=== PATIENT | female | born 1930 | race Caucasian/White ===

== ENCOUNTER → 2017-02-16 | Outpatient (CLI) | payer OTHER, MEDICARE ==
[~2017-02-16] MED LIST: AZITHROMYCIN PO; CALCIUM 600 +1 EAC2 PO; Z.0.CALTRATE 600 W1; Z.0.TESSALON PERLE10 PO
--- NOTE | 2017-02-16 11:28 | Diagnostic Imaging Report ---
PROCEDURE:PELVIC ULTRASOUND COMPARISON:Pelvic ultrasounds 05/11/16, 06/19/15, 12/27/2012 and 12/04/2011 INDICATIONS:Ovarian Enlargement, left ovarian cyst, history of hysterectomy in 1979 TECHNIQUE: Grayscale transverse and sagittal transabdominal images were obtained of the pelvis. FINDINGS: UTERUS: Absent RIGHT OVARY: Not visualized LEFT OVARY: No ovarian tissue is visualized. A unilocular cyst in the left pelvis measures 3.7 x 4.2 x 4.7 cm. The volume is 38.2 cc. Most recently (2016), this measured 3.6 x 3.4 x 5.0 cm (volume 32 cc). In 2015, this measured 3.1 x 3.0 x 4.4 cm (volume 21.4 cc). In 2011, this measured 2.7 x 2.6 x 3.6 cm (volume 13.2 cc). There is no increased vascularity on color Doppler interrogation. Bladder: A cystic structure along the posterior bladder wall to left of midline is stable measuring 9 x 11 x 14 mm. This has been present since 2014. There is no vascularity on Doppler interrogation. The remainder of the bladder wall is normal. There is no free fluid within the pelvis. CONCLUSION: 1. Unilocular cyst in the left pelvis continues to increase in size without development of suspicious features. 2. Stable bladder cyst. Dictated by: Suha Dale M.D. on 02/16/2017 at 11:36 Electronically approved by: Suha Dale M.D. on 02/16/2017 at 11:36
== END ==
LOC: US 09:41
PROVIDERS: ATTEND Internal Medicine
DX: D47.2 Monoclonal gammopathy (principal); N83.8 Other noninflammatory disorders of ovary, fallopian tube and broad ligament
CPT/HCPCS: 76856

== ENCOUNTER → 2017-06-13 | Outpatient (CLI) | payer MEDICARE ==
--- NOTE | 2017-06-16 08:58 | Diagnostic Imaging Report ---
#[id number] - MGSCRBIL #BILATERAL DIGITAL SCREENING MAMMOGRAM WITH CAD: 06/13/2017 CLINICAL: Routine screening. Comparison is made to exams dated: 05/25/2016 mammogram and 01/22/2013 mammogram - [facility]. Current study contains 4 films. The tissue of both breasts is extremely dense, which lowers the sensitivity of mammography. Current study was also evaluated with a Computer Aided Detection (CAD) system. There are benign calcifications in both breasts. No significant masses, calcifications, or other findings are seen in either breast. There has been no significant interval change. IMPRESSION: BENIGN There is no mammographic evidence of malignancy. A 1 year screening mammogram is recommended. The patient will be notified by letter of the results. Nuno martin/sophia:06/15/2017 12:47:51 Manager Nicu: Darlene SKAGGS(R)(M), [facility] letter sent: Compared to Prior B9 Mammogram BI-RADS: 2 Benign
== END ==
LOC: MAMMO 13:28
PROVIDERS: ATTEND Internal Medicine
DX: Z12.31 Encounter for screening mammogram for malignant neoplasm of breast (principal)
CPT/HCPCS: 77067

== ENCOUNTER 2018-04-23 23:32 | Observation (INO) | payer MEDICARE ==
[~2018-04-23] VITALS: Ht 162.6 cm; Wt 56.7 kg
--- OUTSIDE RECORDS SUMMARY | 2018-04-23 23:35 | XMS REPORT | Summary of Care ---
Author Author [facility] Organization [facility] Address Unknown Phone Unavailable Encounter HQ Encntr_winnie(FIN) [id number] Date(s): 02/16/17 - 02/16/17 [facility] [address] [place] [address]- Encounter Diagnosis Age-related osteoporosis without current pathological fracture (Final) - 02/21/17 Discharge Disposition: Home or Self Care Attending Physician: Rivera Andino MD Admitting Physician: Rivera Andino MD Referring Physician: Rivera Andino MD Vital Signs No data available for this section Problem List No data available for this section Allergies, Adverse Reactions, Alerts No data available for this section Medications No data available for this section Results No data available for this section Immunizations No data available for this section Procedures No data available for this section Social History No data available for this section Assessment and Plan No data available for this section
--- OUTSIDE RECORDS SUMMARY | 2018-04-23 23:35 | XMS REPORT | Continuity of Care Document ---
[facility] Address Unknown Phone Unavailable Problems Problem Status Onset Date Classification Date Reported Comments Source Age-related osteoporosis without current pathological fracture 02/22/2017 05/25/2017 [facility] M81.0 Active 01/23/2017 [facility] M54.5 Active 10/15/2015 [facility] AGE-RELATED OSTEOPOROSIS W/O CURRENT PAT Active [facility] LOW BACK PAIN Active [facility] Medications Medication Details Route Status Patient Instructions Ordering Provider Order Date Source Allergies, Adverse Reactions, Alerts Substance Category Reaction Severity Reaction type Status Date Reported Comments Source Immunizations Immunization Date Given Site Status Last Updated Comments Source Results Order Name Results Value Reference Range Date Interpretation Comments Source Bone Density DXA [employer] MA Bone Density DXA [employer] MA Bone Density DXA [employer] MA Female 86 years old Clinical Indication: - M81.0 Age-related osteoporosis without current pathological fracture; partial hysterectomy; increased caffeine consumption Comparison: None Images of the axial lumbar spine and left hip have been performed using [employer] Discovery SL scanner. FINDINGS: LEFT HIP BMD=66% of expected peak bone mass. Left hip BMD is 0.621 g/cm2. Left Hip T-score=-2.6. Femoral neck T score=-2.7. Femoral neck BMD=0.545 g/cm2. AXIAL LUMBAR BMD=95% of expected peak bone mass. Axial lumbar BMD=0.995 g/cm2 Lumbar T-score=-0.5. IMPRESSION: 1. Osteoporosis in the left hip and femoral neck. 2. High risk for fracture. The World Health Organization has established that OSTEOPOROSIS occurs at -2.5 or more standard deviations (SD) below peak bone mass (T-score on the Hologic report). OSTEOPENIA (low bone mass) occurs at -1.0 standard deviations to -2.5 standard deviations below peak bone mass. SL: [id number] 02/16/2017 - - Read by: Ab Maher MD Dictated Date/time: 02/16/17 14:56 Electronically Signed by: Ab Maher MD 02/16/17 14:58 FINAL REPORT [facility] Spine lumbar series DX Spine lumbar series DX Study: Lumbar spine, 5 views Clinical Indication: Low back pain for 20 days, no trauma Comparison: None FINDINGS: AP, lateral and oblique images were obtained. There is generalized osteopenia and moderate rotatory thoracolumbar dextroscoliosis. No compression fracture is evident. All intervertebral disc spaces are narrowed. There are marginal osteophytes at all levels and there is multilevel facet arthropathy. Sacroiliac joints are not remarkable. IMPRESSION: No definite acute abnormality. Scoliosis, spondylosis and osteopenia. SL: [id number] 10/15/2015 - - Read by: Rodríguez Govea MD Dictated Date/time: 10/15/15 17:04 Electronically Signed by: Rodríguez Govea MD 10/15/15 17:06 FINAL REPORT [facility] Vital Signs Vital Sign Value Date Comments Source Encounters Location Location Details Encounter Type Encounter Number Reason For Visit Attending Provider ADM Date DC Date Status Source [facility] Out[facility] [id number] [facility] 10/15/2015 10/16/2015 [facility] Out[facility] [id number] [facility] [place] 02/16/2017 02[facility]17/[facility] Procedures Procedure Code Date Perfomer Comments Source
--- OUTSIDE RECORDS SUMMARY | 2018-04-23 23:35 | XMS REPORT | Summary of Care ---
Author Author [facility] Organization [facility] Address Unknown Phone Unavailable Encounter HQ Encntr_alias(FIN) [id number] Date(s): 10/15/15 - 10/15/[address] [facility] [address] [place] [id number]- Discharge Disposition: Home or Self Care Attending Physician: Rivera Andino MD Vital Signs No [...]
--- OUTSIDE RECORDS SUMMARY | 2018-04-23 23:35 | XMS REPORT ---
Author Author [facility] Address Unknown Phone Unavailable Care Team Providers Care Gas Tender Name Role Phone GUILLERMINA PAPPAS Unavailable Unavailable Problems This patient has no known problems. Allergies, Adverse Reactions, Alerts This patient has no known allergies or adverse reactions. Medications This patient has no known medications. Results Test Description Test Time Test Comments Text Results Atomic Results Result Comments MAMMOGRAPHY DIGITAL SCR BILAT [place] [address] Patient Name: MARIBELL BRAR MR #: [id number] : 1930 Age/Sex: 87/F Req #: [id number] [facility] Physician: Ordered by: GUILLERMINA PAPPAS MD Report #: [id number] Location: MAMMO Room/Bed: Procedure: [id number] MG/MAMMOGRAPHY DIGITAL SCR BILAT Exam Date: 06/13/17 Exam Time: 1340 REPORT STATUS: Signed #[id number] - MGSCRBIL #BILATERAL DIGITAL SCREENING MAMMOGRAM WITH CAD: 06/13/2017 CLINICAL: Routine screening. Comparison is made to exams dated: 05/25/2016 mammogram and 01/22/2013 mammogram - [facility]. Current study contains 4 films. The tissue of both breasts is extremely dense, which lowers the sensitivity of mammography. Current study was also evaluated with a Computer Aided Detection (CAD) system. There are benign calcifications in both breasts. No significant masses, calcifications, or other findings are seen in either breast. There has been no significant interval change. IMPRESSION: BENIGN There is no mammographic evidence of malignancy. A 1 year screening mammogram is recommended. The patient will be notified by letter of the res ults. Nita martin/kary:06/15/2017 12:47:51 Per Diem Clerk: Darlene VILLAGOMEZ)(Sophie), [facility] letter sent: Compared to Prior B9 Mammogram BI-RADS: 2 Benign Dictated By: NITA CORRAL DO 46 Transcribed By: KARY on 06/15/177 COPY TO: GUILLERMINA PAPPAS MD US PELVIS COMPLETE NON OB [place] [address] Patient Name: MARIBELL BRAR MR #: [id number] : 1930 Age/Sex: 86/F Req #: [id number] Adm Physician: Ordered by: GUILLERMINA PAPPAS MD Report #: [id number] Location: US Room/Bed: Procedure: [id number] US/US PELVIS COMPLETE NON OB Exam Date: Exam Time: REPORT STATUS: Signed PROCEDURE: PELVIC ULTRASOUND COMPARISON: Pelvic ultrasounds 05/11/16, 06/19/15, 12/27/2012 and 12/04/2011 INDICATIONS: Ovarian Enlargement, left ovarian cyst, history of hysterectomy in 1978 TECHNIQUE: Grayscale transverse and sagittal transabdominal images were obtained of the pelvis. FINDINGS: UTERUS: Absent RIGHT OVARY: Not visualized LEFT OVARY: No ovarian tissue is visualized. A unilocular cyst in the left pelvis measures 3.7 x 4.2 x 4.7 cm. The volume is 38.2 cc. Most recently (2016), this measured 3.6 x 3.4 x 5.0 cm (volume 32 cc). In 2015, this measured 3.1 x 3.0 x 4.4 cm (volume 21.4 cc). In 2011, this measured 2.7 x 2.6 x 3.6 cm (volume 13.2 cc). There is no increased vascularity on color Doppler interrogation. Bladder: A cystic structure along the posterior bladder wall to left of midline is stable measuring 9 x 11 x 14 mm. This has been present since 2014. There is no vascularity on Doppler interrogation. The remainder of the bladder wall is normal. There is no free fluid within the pelvis. CONCLUSION: 1. Unilocular cyst in the left pelvis continues to increase in size without development of suspicious features. 2. Stable bladder cyst. Dictated by: Richmond Dale M.D. on 02/16/2017 at 11:36 Electronically approved by: Richmond Dale M.D. on 02/16/2017 at 11:36 Dictated By: RICHMOND DALE MD 1136 Transcribed By: ANDREA on 02/16/17 1136 COPY TO: GUILLERMINA PAPPAS MD
[2018-04-23] MEDS ORDERED: AZITHROMYCIN 500MG/NS 250 ML 250 ML IV STA (23:37)
[2018-04-23] MEDS ORDERED: CEFTRIAXONE SOD 1 GM/NS 50 ML 50 ML IV SCH (23:45)
[2018-04-23] MEDS ORDERED: ACETAMINOPHEN 325 MG TAB PO ONE (23:45)
[2018-04-24 00:03] LABS: BASOPHILS % 0.2 % (0.0-1.0); EOSINOPHILS # (AUTO) 0.1 (0.0-0.4); EOSINOPHILS % 1.9 % (0.0-6.0); HEMATOCRIT 38.1 % (34.2-44.1); HEMOGLOBIN 12.8 g/dL (12.0-16.0); LYMPHOCYTES # (AUTO) 1.2 (1.0-3.2); LYMPHOCYTES % 25.4 % (18.0-39.1); MEAN CORPUSCULAR HEMOGLOBIN 31.4 pg (28-32); MEAN CORPUSCULAR HGB CONC 33.6 g/dL (31-35); MEAN CORPUSCULAR VOLUME 93.4 fL (81-99); MONOCYTES # (AUTO) 0.6 (0.2-0.8); MONOCYTES % 12.2 % (4.4-11.3); NEUTROPHILS # (AUTO) 2.9 (2.1-6.9); NEUTROPHILS % 60.1 % (38.7-80.0); PLATELET COUNT 134 x10e3/uL (140-360); RED BLOOD COUNT 4.08 x10e6/uL (3.6-5.1); RED CELL DISTRIBUTION WIDTH 12.6 % (11.7-14.4)
[2018-04-24 00:19] LABS: ALANINE AMINOTRANSFERASE 18 IU/L (0-55); ALBUMIN 4.2 g/dL (3.5-5.0); ALBUMIN/GLOBULIN RATIO 0.9 (0.8-2.0); ALKALINE PHOSPHATASE 63 IU/L (40-150); ANION GAP 12.5 mmol/L (8-16); BLOOD UREA NITROGEN 14 mg/dL (7-26); BUN/CREATININE RATIO 14 (6-25); CALCIUM 9.5 mg/dL (8.4-10.2); CARBON DIOXIDE 27 mmol/L (22-29); CHLORIDE 105 mmol/L (98-107); CREATINE KINASE 199 IU/L (29-168); CREATININE, SERUM 1.02 mg/dL (0.57-1.11); EST GLOMERULAR FILTRATION RATE 51 ML/MIN (60-); GLUCOSE 107 mg/dL (74-118); POTASSIUM 4.5 mmol/L (3.5-5.1); SODIUM 140 mmol/L (136-145)
--- NOTE | 2018-04-24 01:02 | Diagnostic Imaging Report ---
Examination: Single AP view of the chest. COMPARISON: None. INDICATION: Respiratory distress, cough fever IMPRESSION: 1. Lines and Tubes: None 2. Lungs are well-inflated. No consolidation or effusion. 3. Cardiomediastinal silhouette is normal. Pulmonary vasculature is normal. 4. No acute bony abnormalities. Signed by: Dr. Doc Reno M.D. on 04/24/2018 12:59 AM
[2018-04-24 01:11] LABS: STREPTOCOCCUS GRP A ANTIGEN NEGATIVE (NEGATIVE)
[2018-04-24 01:23] LABS: INFLUENZAE A&B ANTIGEN (RAPID) NEGATIVE (NEGATIVE)
[2018-04-24 02:25] LABS: CLARITY,URINE CLEAR (CLEAR); COLOR,URINE YELLOW (YELLOW)
[2018-04-24 02:26] LABS: BILIRUBIN,URINE NEGATIVE (NEGATIVE); KETONES,URINE NEGATIVE (NEGATIVE); LEUKOCYTE ESTERASE ,URINE NEGATIVE (NEGATIVE); NITRITE,URINE NEGATIVE (NEGATIVE); PROTEIN,URINE DIPSTICK 1+ (NEGATIVE); URINE UROBILINOGEN 0.2 mg/dL (0.2 - 1)
[2018-04-24 02:31] LABS: BACTERIA,URINE RARE /HPF; EPITHELIAL CELLS,URINE FEW /LPF; WBC,URINE (MAN) 0-5 /HPF (0-5)
[2018-04-24] MEDS ORDERED: IBUPROFEN 600 MG TAB ONE (03:10)
[2018-04-24] MEDS ORDERED: IBUPROFEN 600 MG TAB PO STA (03:15)
--- NOTE | 2018-04-24 04:53 | NUR ---
pt reports she feels better after meds, placed on hospital bed for comfort, awake alert skin w/d resp nonlab. nad noted. moved to room 4
[2018-04-24] MEDS ORDERED: CEFEPIME HCL 2 GM/SOD CHL 0.9% 100 ML BAG IV SCH ×2 (06:00→14:00)
[2018-04-24] MEDS ORDERED: LEVOFLOXACIN 750MG/D5W 150ML IV SCH (06:15)
[2018-04-24] MEDS ORDERED: CEFEPIME 2 GM/NS 0.9% 100 ML 100 ML IV ONE (06:20)
[2018-04-24] MEDS ORDERED: LEVOFLOXACIN 750MG/D5W 150ML 150 ML IV ONE (06:20)
[2018-04-24] MEDS: CEFEPIME 2 GM/NS 0.9% 100 ML 100 ML IV SCH ×3 (06:23→22:49)
--- NOTE | 2018-04-24 06:29 | NUR ---
spo2 90% on room air, denies sob, cont to have occasional cough, placed on O2 2L NC, spo2 97% on O2. awake alert skin w/d resp nonlab. nad noted.
--- NOTE | 2018-04-24 06:32 | NUR ---
specimen cup given for sputum collection, inst on sputum collection, verb understanding.
--- NOTE | 2018-04-24 06:47 | NUR ---
REPORT TO SYLVIERN
[2018-04-24] MEDS: LEVOFLOXACIN 750MG/D5W 150ML 150 ML IV SCH (07:09)
[2018-04-24 07:19] LABS: CREATINE KINASE MB 1.1 ng/mL (0-5.0)
[2018-04-24 07:50] VITALS: BP 107/60
[2018-04-24] MEDS ORDERED: MUCINEX DM ER1 EACH PO (08:02)
[2018-04-24] MEDS ORDERED: CALCIUM 500+D1 EACH PO (08:02)
[2018-04-24] MEDS ORDERED: INTRINSI B12-F1 EACH PO (08:02)
[2018-04-24 09:55] VITALS: BP 119/61
--- NOTE | 2018-04-24 09:55 | NUR ---
PT ARRIVED TO UNIT RESP EVEN AND UNLABORED AT THIS TIME NO DISTRESS NOTED, PT ON TELE , AND HAS CONTINUOS PULSE OX, ALSO 02 AT 2 LNC. PT ABLE TO MAKE NEEDS KNOWN, NO SOB INDICATED AT THIS TIME , PT ORIENTED TO ROOM AND CALL LIGHT, BED IN LOWEST POSITION, BED RAILS UP X2, CALL LIGHT IN REACH. FAMILY MEMBER AT BEDSIDE
--- NOTE | 2018-04-24 11:05 | NUR ---
PT OFF UNIT FOR C SCAN
--- NOTE | 2018-04-24 11:40 | NUR ---
PT RETURNED TO UNIT RESP EVEN AND UNLABORED AT THIS TIME, CALL LIGHT IN REACH.
--- NOTE | 2018-04-24 11:55 | Diagnostic Imaging Report ---
EXAMINATION: CT scan of the chest without contrast. TECHNIQUE: Spiral CT images of the chest were performed from the lung apices to the level of the adrenal glands. No intravenous contrast was administered per referring physician request Coronal and sagittal reformatted images were obtained. COMPARISON: Chest radiograph 04/24/2018 CLINICAL HISTORY:Shortness of breath, cough DISCUSSION: ABSENCE OF INTRAVENOUS CONTRAST DECREASES SENSITIVITY FOR DETECTION OF FOCAL LESIONS AND VASCULAR PATHOLOGY. LINES/TUBES: None. LUNGS AND AIRWAYS: Biapical pleural-parenchymal scar right greater than left. Scattered nonspecific juxtapleural reticular opacities which may reflect age-related fibrotic changes. No focal consolidation, honeycombing, or mass lesion. Moderate amount of debris within the right mainstem bronchus and extending into the lower lobe segmental bronchi. Serpiginous nodular opacity with adjacent groundglass in the left lower lobe seen on series 3 image 65. Right middle lobe and lingular paramediastinal scar. PLEURA: No pneumothorax or pleural effusions. HEART AND MEDIASTINUM: Visualized portions of the thyroid gland appear normal. No ectasia or aneurysmal dilatation of the thoracic aorta. Great vessel origins are of normal caliber and configuration. Atherosclerotic calcification of the aorta and kaw coronary arteries. No axillary, hilar, or mediastinal lymphadenopathy LYMPH NODES: There is no mediastinal, hilar or axillary lymphadenopathy. ABDOMEN: Visualized portions of the liver, spleen, left adrenal, and left kidney are grossly unremarkable. BONES AND SOFT TISSUES: No osseous destructive lesions. Age indeterminate moderate anterior compression deformities of T7, T8, T9, and T12. The bones are diffusely osteopenic. Questionable 1 cm nodule in the right breast seen on series 2 image 73. IMPRESSION: Right mainstem endobronchial debris with probable mucoid impaction of several subsegmental right lower lobe bronchi. Nodular and groundglass opacities in the left lower lobe likely reflect atypical infection. No consolidative pneumonia. Biapical pleural-parenchymal scar. Age indeterminant thoracic spinal compression deformities as above. Correlate for point tenderness. Atherosclerotic vascular disease. Questionable 1 cm nodule in the right breast should be correlated by mammography. Signed by: Dr. Jasen Peoples M.D. on 04/24/2018 11:52 AM
[2018-04-24] MEDS: ACETAMINOPHEN 1000 MG/100 ML IV SCH (12:00)
[2018-04-24] MEDS: BUDESONIDE 0.5MG/2 ML NEB INH SCH (12:00)
[2018-04-24 12:22] VITALS: BP 111/57
[2018-04-24] MEDS ORDERED: IPRATROPIUM BROMIDE 0.02% 2.5 ML NEB NEB SCH (15:00)
[2018-04-24] MEDS ORDERED: SODIUM CHLORIDE 0.9% 250ML 250 ML ONE ×2 (15:17→22:43)
[2018-04-24 15:26] VITALS: BP 117/58
[2018-04-24 16:07] LABS: CREATINE KINASE MB 2.5 ng/mL (0-5.0)
--- NOTE | 2018-04-24 16:10 | NUR ---
REPORT GIVEN TO CARLA STEIN PT TRANSFERRED TO ROOM 200. PT HAS FAMILY AT BEDSIDE.
--- NOTE | 2018-04-24 16:35 | NUR ---
Received patient to the unit at this time. and son at the bedside. Patient appears weak but is A&Ox4. She has no complaints of pain. Wet cough noted. Patient is able to expectorate sputum. Sputum is "olive" green color. Patient ambulates with 4-post cane with assistance. Educated patient to call before getting out of bed. Call light within reach. Bed is low and locked.
--- NOTE | 2018-04-24 18:03 | History and Physical ---
CHIEF COMPLAINT: Shortness of breath and wheezing. HISTORY OF PRESENT ILLNESS: Ms. Sandoval is an 87-year-old female. She presented to the emergency room with worsening shortness of breath, cough, and wheezing. This has been going on for two days. Her also has pneumonia and shortness of breath, and she is in the hospital as well. The patient reported she received flu vaccine this year. Her influenza test has been negative in the emergency room. Chest x-ray did not show any clear-cut pneumonia. She has history of childhood asthma. REVIEW OF SYSTEMS: GENERAL: She was having fever and chills. HEAD: Denies any head trauma. ENT: Denies any earache. CVS: Denies any chest pain. RESPIRATORY: Shortness of breath and wheezing. GI: Denies any nausea or vomiting. MUSCULOSKELETAL: Denies any arthralgias, myalgias. NEUROLOGIC: Denies any focal weakness. The rest of the review of systems are negative except as in HPI. PAST MEDICAL HISTORY: None. SURGICAL HISTORY: Partial hysterectomy and tonsillectomy. FAMILY AND SOCIAL HISTORY: She has never smoked and never drank. 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 Her is a physician. PHYSICAL EXAMINATION: VITAL SIGNS: Temperature 100, pulse of 89, blood pressure 112/61, respiratory rate of 18, T-max of 101.5 and 102.3. HEENT: Head atraumatic, normocephalic. NECK: Supple. CHEST: Has wheezing bilaterally. HEART: S1, S2 audible. ABDOMEN: Soft, nontender, nondistended. EXTREMITIES: No clubbing, cyanosis, or edema. NEUROLOGIC: She is awake and alert. No focal neurologic deficits. LABORATORY DATA: Influenza was negative. Chemistry; sodium 140, potassium 4.5, chloride 105, BUN 14, creatinine 1.02. White count of 4.7, hemoglobin 12.8. Chest x-ray, I have reviewed the images, not showing any focal infiltrate. ASSESSMENT: Ms. Sandoval is an 87-year-old female with fever, wheezing, cough, possibly can have pneumonia as lower lobe pneumonias can be missed on chest x-rays, worse viral infection. Influenza is negative. PLAN: I will continue the patient on cefepime and Levaquin for now, do a CT of the chest without contrast. Also start her on nebulizer treatment, the patient has been wheezing bilaterally. If the nebulizer treatment does not help then may need low-dose steroids. We will follow. Discussed with son at bedside. MD BINDU Rossi/ERLIN /[id number]
[2018-04-24] MEDS: LEVALBUTEROL HCL SOLN NEBU 1.25 MG/3 ML NEB INH SCH (19:25)
[2018-04-24 20:00] VITALS: BP 128/61
[2018-04-25] VITALS (7 sets, daily range): BP systolic 96–122; BP diastolic 52–74
[2018-04-25] MEDS: LEVALBUTEROL HCL SOLN NEBU 1.25 MG/3 ML NEB INH SCH ×4 (01:35→19:31)
[2018-04-25] MEDS: ACETAMINOPHEN 1000 MG/100 ML IV SCH (05:21)
[2018-04-25] MEDS: CEFEPIME 2 GM/NS 0.9% 100 ML 100 ML IV SCH ×3 (05:47→22:42)
[2018-04-25] MEDS: LEVOFLOXACIN 750MG/D5W 150ML 150 ML IV SCH (06:19)
[2018-04-25] MEDS: BUDESONIDE 0.5MG/2 ML NEB INH SCH ×2 (07:00→19:31)
--- NOTE | 2018-04-25 07:15 | NUR ---
Report and bedside rounding completed and the pt. c/o feeling tired and needing to rest. She denies pain or discomfort at this time.
[2018-04-25 07:49] LABS: CREATINE KINASE MB 2.8 ng/mL (0-5.0)
--- NOTE | 2018-04-25 08:17 | NUR ---
Visit made by the Spiritual Care Department Pastoral Visitor, Bettye Newby. PV provided pastoral presence, prayer, hospitality, and supportive listening. Pastoral Visitor informed pt/family of the scope of [employer] and availability. JUVE Martinezlain Spiritual Care Department O: [phone] Pager: [phone] ([phone] number calling from) Addendum: 04/25/18 at 0818 by Juve Flaherty CHAP CORRECTION: This visit took place on 04/24/2018 at approximately 1430.
[2018-04-25 09:28] LABS: BASOPHILS % 0.1 % (0.0-1.0); EOSINOPHILS % 0.1 % (0.0-6.0); HEMATOCRIT 33.1 % (34.2-44.1); LYMPHOCYTES # (AUTO) 1.5 (1.0-3.2); LYMPHOCYTES % 15.1 % (18.0-39.1); MEAN CORPUSCULAR HEMOGLOBIN 31.3 pg (28-32); MEAN CORPUSCULAR HGB CONC 33.2 g/dL (31-35); MONOCYTES % 9.7 % (4.4-11.3); NEUTROPHILS # (AUTO) 7.6 (2.1-6.9); NEUTROPHILS % 74.5 % (38.7-80.0); PLATELET COUNT 107 x10e3/uL (140-360); RED BLOOD COUNT 3.52 x10e6/uL (3.6-5.1); RED CELL DISTRIBUTION WIDTH 12.8 % (11.7-14.4)
--- NOTE | 2018-04-25 12:55 | NUR ---
CASE MANAGEMENT INITIAL ASSESSMENT It Project Manager to bedside to discuss plan of care with patient/family. CM/SW role and care transitions discussed. Anticipated discharge plan discussed along with duration of care. CM discussed patients right to make decisions in care. CM work hours given. Patient lives: IN SINGLE STORY HOME WITH IN [facility] Admit/Transfer: ED Hospital/ER visits since last admit: >30 DAYS POA/Emergency contact: DEMETRIS BRAR- : [phone] Current/Previous Home Health: NONE PCP/Follow-up Care: NONE; PATIENT ENCOURAGED TO GET PCP FOR FOLLOW UP VISIT. SHE AND HER STATES THEY WILL LOOK INTO IT. Current/Previous DME: WALKER ON STANDBY BUT PATIENT AMBULATES INDEPENDENTLY Medications (referring to index hospitalization or the first time you were in the hospital) a. Were changes made in your medications when you were in the hospital on [date of index hospitalization]? NO Note: If no or not sure, please skip to question d b. Did you understand the changes? N/A c. Were you able to obtain your new medications right away? N/A d. Were you able to take your medications like the doctor wanted you to? N/A e. Did the hospital give you an accurate, easy to understand list of medications when you left? N/A Scale of 1-10 how comfortable does patient feel with disease management in outpatient setting: Other Services: PATIENT RECEIVED EDUCATION OVER MEDICATIONS. Employment Status: RETIRED Areas of Concerns: NONE AT THIS TIME Referral Needs: NONE AT THIS TIME Education Needs: MEDICATION IMM/MUSA given and signed (if applicable): MUSA Goal for discharge: DISCHARGE HOME WITH NO NEEDS CM left business card at the bedside with contact information. Name and number was also written on the patients whiteboard. Patient verbalized understanding of discussion. CM will follow-up with ongoing discharge and transition of care needs.
[2018-04-25] MEDS ORDERED: ALBUTEROL/IPRATROPIUM 3 ML NEB NEB PRN (18:15)
[2018-04-25] MEDS: METHYLPREDNISOLONE SOD SUCC 40 MG/ML VIAL 1ML IV SCH ×2 (18:39→22:42)
[2018-04-25] MEDS ORDERED: LEVALBUTEROL HCL SOLN NEBU 0.63 MG/3 ML NEB IH PRN (19:00)
[2018-04-26] VITALS (7 sets, daily range): BP systolic 117–143; BP diastolic 61–74
[2018-04-26] MEDS: LEVALBUTEROL HCL SOLN NEBU 1.25 MG/3 ML NEB INH SCH ×4 (00:20→19:50)
[2018-04-26 05:07] LABS: BASOPHILS % 0.1 % (0.0-1.0); HEMATOCRIT 32.9 % (34.2-44.1); HEMOGLOBIN 10.8 g/dL (12.0-16.0); LYMPHOCYTES # (AUTO) 0.5 (1.0-3.2); LYMPHOCYTES % 6.2 % (18.0-39.1); MEAN CORPUSCULAR HEMOGLOBIN 30.6 pg (28-32); MEAN CORPUSCULAR HGB CONC 32.8 g/dL (31-35); MEAN CORPUSCULAR VOLUME 93.2 fL (81-99); MONOCYTES # (AUTO) 0.2 (0.2-0.8); MONOCYTES % 2.2 % (4.4-11.3); NEUTROPHILS # (AUTO) 7.2 (2.1-6.9); NEUTROPHILS % 90.7 % (38.7-80.0); PLATELET COUNT 116 x10e3/uL (140-360); RED BLOOD COUNT 3.53 x10e6/uL (3.6-5.1); RED CELL DISTRIBUTION WIDTH 12.8 % (11.7-14.4)
[2018-04-26 05:22] LABS: ANION GAP 12.4 mmol/L (8-16); CALCIUM 8.5 mg/dL (8.4-10.2); CREATININE, SERUM 0.95 mg/dL (0.57-1.11); POTASSIUM 3.4 mmol/L (3.5-5.1)
[2018-04-26] MEDS: CEFEPIME 2 GM/NS 0.9% 100 ML 100 ML IV SCH ×3 (05:25→22:04)
[2018-04-26] MEDS: METHYLPREDNISOLONE SOD SUCC 40 MG/ML VIAL 1ML IV SCH ×2 (05:25→17:00)
[2018-04-26] MEDS: LEVOFLOXACIN 750MG/D5W 150ML 150 ML IV SCH (06:45)
[2018-04-26] MEDS: BUDESONIDE 0.5MG/2 ML NEB INH SCH ×2 (07:00→19:50)
--- NOTE | 2018-04-26 08:00 | NUR ---
The pt. called to express concern that she is listed as male on her dietary tray. The pt. was reassured that she is listed female on her medical chart. Her concern is that her insurance will not pay if there is the smallest discrepancy.
[2018-04-26] MEDS ORDERED: ACETAMINOPHEN 325 MG TAB PO PRN (11:45)
[2018-04-26] MEDS ORDERED: POTASSIUM CHLORIDE 20 MEQ TAB CR PO NR (12:00)
[2018-04-26] MEDS ORDERED: SODIUM CHLORIDE 0.9% 250ML 250 ML ONE (13:41)
[2018-04-27] MEDS: LEVALBUTEROL HCL SOLN NEBU 1.25 MG/3 ML NEB INH SCH ×3 (00:11→13:00)
[2018-04-27 04:00] VITALS: BP 133/70
[2018-04-27 05:13] LABS: BASOPHILS % 0.1 % (0.0-1.0); HEMOGLOBIN 10.4 g/dL (12.0-16.0); LYMPHOCYTES # (AUTO) 0.6 (1.0-3.2); LYMPHOCYTES % 5.6 % (18.0-39.1); MEAN CORPUSCULAR HEMOGLOBIN 30.5 pg (28-32); MEAN CORPUSCULAR HGB CONC 33.5 g/dL (31-35); MEAN CORPUSCULAR VOLUME 90.9 fL (81-99); MONOCYTES # (AUTO) 0.6 (0.2-0.8); MONOCYTES % 5.7 % (4.4-11.3); NEUTROPHILS # (AUTO) 9.7 (2.1-6.9); NEUTROPHILS % 86.8 % (38.7-80.0); PLATELET COUNT 149 x10e3/uL (140-360); RED BLOOD COUNT 3.41 x10e6/uL (3.6-5.1); RED CELL DISTRIBUTION WIDTH 12.8 % (11.7-14.4)
[2018-04-27] MEDS: CEFEPIME 2 GM/NS 0.9% 100 ML 100 ML IV SCH (05:22)
[2018-04-27 05:30] LABS: ANION GAP 9.8 mmol/L (8-16); CALCIUM 8.5 mg/dL (8.4-10.2); CREATININE, SERUM 0.93 mg/dL (0.57-1.11); POTASSIUM 3.8 mmol/L (3.5-5.1)
[2018-04-27] MEDS: LEVOFLOXACIN 750MG/D5W 150ML 150 ML IV SCH (06:31)
[2018-04-27] MEDS: BUDESONIDE 0.5MG/2 ML NEB INH SCH (07:00)
[2018-04-27 08:26] VITALS: BP 147/83
[2018-04-27] MEDS: METHYLPREDNISOLONE SOD SUCC 40 MG/ML VIAL 1ML IV SCH ×2 (09:00→09:16)
[2018-04-27 09:24] VITALS: BP 147/83
[2018-04-27 11:01] LABS: LYMPHOCYTES % (MANUAL) 6 % (19-48); MONOCYTES % (MANUAL) 4 % (3.4-9.0); NEUTROPHILS % (MANUAL) 88 % (40-74)
[2018-04-27 11:02] LABS: ANISOCYTOSIS SLIGHT; HYPOCHROMASIA SLIGHT; RBC MORPHOLOGY COMMENT NORMAL
[2018-04-27 11:03] LABS: PLATELET ESTIMATE SLIGHTLY DECREASED; PLATELET MORPHOLOGY COMMENT NORMAL
--- NOTE | 2018-04-27 11:49 | NUR ---
CM to bedside to discuss [facility] patients rights. IMM discussed and signature obtained from patient. Patient verbalized understanding of discussion.
[2018-04-27] MEDS ORDERED: SYMBICORT 16010.2 GM INH (11:56)
[2018-04-27] MEDS ORDERED: LEVAQUIN500 MG PO (11:56)
[2018-04-27] MEDS ORDERED: ALBUTEROL0.63 MG/3 (12:00)
[2018-04-27] MEDS ORDERED: PREDNISONE10 MG PO (12:02)
[2018-04-27 12:19] VITALS: BP 136/80
--- NOTE | 2018-04-28 10:12 | Discharge Summary ---
FINAL DIAGNOSES: 1. Pneumonia versus upper respiratory tract infection. 2. History of asthma. ADMISSION HISTORY AND HOSPITAL COURSE: Ms. Sandoval is an 87-year-old female. She came in with cough and shortness of breath and wheezing going on for the last few days. She was started on IV antibiotics and nebulizer treatment along with IV steroids, the patient improved. She has been afebrile since 04/25, and has been doing very well, worked with physical therapy. She did not require any home oxygen. She will be discharged home to follow up with her primary care physician. Discharge medication list was reviewed. I have also talked to her son in detail about the patient's followup and medications. All the prescriptions are left in the chart. TIME SPENT: 40 minutes. MD BINDU Rossi/ERLIN /[id number]
== END 2018-04-27 13:30 | disposition home or self-care (01) ==
LOC: ER 23:32 → ERHOLD 04-24 06:09 → IMCU 04-24 10:01 → MED/SURG2 04-24 16:36
PROVIDERS: ADMIT Internal Medicine; ATTEND Internal Medicine
DX: J18.9 Pneumonia, unspecified organism (principal); J06.9 Acute upper respiratory infection, unspecified; J45.901 Unspecified asthma with (acute) exacerbation; Z88.8 Allergy status to other drugs, medicaments and biological substances
CPT/HCPCS: 36415 ×4; 71045; 71250; 80048 ×2; 80053; 81001; 82550 ×3; 82553 ×3; 83518; 83605; 84484 ×3; 85025 ×4; 87040; 87070 ×2; 87205; 87400; 94640 ×7; 97116 ×2; 97139; 97161; 97530 ×2; 99284; G0378 ×4; J0131; J0456; J0696; J2920 ×2; J7050 ×2